=== PATIENT | female | born 1970 | race African-American/Black ===

== ENCOUNTER 2017-05-26 21:04 | Emergency (ER) | payer BC, OTHER ==
[~2017-05-26] VITALS: Ht 167.6 cm; Wt 88.0 kg
[~2017-05-26 21:04] MED LIST: CYCL-36 PO; IBUP-238 PO
[2017-05-26 21:13] VITALS: BP 183/111; PULSE 93; RESP 16; TEMP 98.3; O2SAT 100
[2017-05-26 22:11] VITALS: BP 183/97; PULSE 83; RESP 16; O2SAT 100
[2017-05-26] MEDS ORDERED: SODIUM CHLOR 0.9% 1000 ML INJ 1,000 ML IV ONE (22:31)
--- NOTE | 2017-05-26 22:42 | PD ---
HPI Chief Complaint: Headache Time Seen by Provider: 22:25 Travel History International Travel<30 days: No Contact w/Intl Traveler<30days: No Traveled to known affect area: No History of Present Illness HPI 47-year-old female presents to the emergency department for evaluation of 2 separate issues. First, the patient has a headache that started yesterday. She states she took Tylenol neck she has decreased to approximately a 6/10. States it is behind her bilateral eyes. She denies any photophobia or phonophobia. No nausea, vomiting, diarrhea. No chest pain or shortness of breath. She also reports bilateral leg pain, the entire legs. She denies any history of DVT. No erythema or swelling. Patient denies any injury or trauma. She reports no chronic medical problems and takes no prescribed. She denies a chance of . [facility] Past Medical History Medical History: Denies Significant Hx Tetanus Vaccination: Unknown ?: Not LMP: 05/11/2017 Past Surgical History Surgical History: No Previous Surgery Social History Alcohol Use: No Tobacco Use: No Substance Use: No Allergies-Medications (Allergen,Severity, Reaction): Coded Allergies: No Known Allergies (Unverified , 05/26/17) Reported Meds & Prescriptions Reported Meds & Active Scripts Active Review of Systems Except as stated in HPI: all other systems reviewed are Neg Physical Exam Narrative GENERAL: Well-nourished, well-developed female patient, afebrile. SKIN: Focused skin assessment warm/dry. HEAD: Normocephalic. Atraumatic. ENT: Mucosa pink and moist. No erythema or exudates. No uvular edema. No uvular , palatal, or tonsillar deviation. Airway patent. Nasal turbinates appear normal without nasal blood, purulent drainage or septal hematoma. Bilateral tympanic membranes are clear without erythema or perforation. EYES: No scleral icterus. No injection or drainage. PERRLA. EOM intact. NECK: Supple, trachea midline. No JVD or lymphadenopathy. CARDIOVASCULAR: Regular rate and rhythm without murmurs, gallops, or rubs. Bilateral radial and pedal pulses are 2+. RESPIRATORY: Breath sounds equal bilaterally. No accessory muscle use. Lungs sounds are clear to auscultation. GASTROINTESTINAL: Abdomen soft, non-tender, nondistended. MUSCULOSKELETAL: No cyanosis, or edema. Bilateral upper and lower extremity strength 5/5. All extremities are neurovascularly intact. No erythema or swelling. Negative Homans sign bilaterally. BACK: Nontender without obvious deformity. No CVA tenderness. NEUROLOGICAL: Awake and alert. Cranial nerves II through XII intact. Motor and sensory grossly within normal limits. Five out of 5 muscle strength in all muscle groups. Normal speech. Finger to nose is normal bilaterally. Heel-to- membreno is normal bilaterally. Data Data Last Documented VS Vital Signs Date Time Temp Pulse Resp B/P (MAP) Pulse Ox O2 Delivery O2 Flow Rate FiO2 05/26/17 22:11 83 16 183/97 (125) 100 Room Air 05/26/17 21:13 98.3 Orders Orders Complete Blood Count With Diff (05/26/17 22:31) Comprehensive Metabolic Panel (05/26/17 22:31) Ct Brain W/O Iv Contrast(Rout) (05/26/17 22:31) Ecg Monitoring (05/26/17 22:31) Iv Access Insert/Monitor (05/26/17 22:31) Oximetry (05/26/17 22:31) Sodium Chloride 0.9% Flush (Ns Flush) (05/26/17 22:45) Prochlorperazine Inj (Compazine Inj) (05/26/17 22:45) Diphenhydramine Inj (Benadryl Inj) (05/26/17 22:45) Sodium Chlor 0.9% 1000 Ml Inj (Ns 1000 M (05/26/17 22:31) Creatine Kinase (Cpk) (05/26/17 22:31) Us Leg Venous Doppler Bilat (05/26/17 ) MDM Medical Decision Making Medical Screen Exam Complete: Yes Emergency Medical Condition: Yes Medical Record Reviewed: Yes Differential Diagnosis Tension headache versus migraine headache versus intracranial abnormality versus muscle spasm versus strain versus hypokalemia Narrative Course 47-year-old female presents to the emergency department for evaluation of headache as well as bilateral lower leg pain. IV access is ordered and pending. CBC, CMP, CK are ordered and pending. CT of the brain is ordered and pending. Venous Doppler ultrasound bilateral lower extremities is ordered and pending. Patient is given normal saline 1 L IV bolus, Compazine 10 mg IV, Benadryl 25 mg IV. My attending physician, Dr. Mulligan, resumed care and disposition of patient. Audra Jin May 26, 2017 22:42
[2017-05-26] MEDS ORDERED: diphenhydrAMINE HCL 50 MG/ML VIAL IVP ONE (22:45)
[2017-05-26] MEDS ORDERED: PROCHLORPERAZINE INJ 10 MG/2 ML VIAL IVP ONE (22:45)
[2017-05-26] MEDS ORDERED: SODIUM CHLORIDE 0.9% FLUSH 10 ML FLUSH IVF PRN (22:45)
[2017-05-26 23:17] LABS: AUTOMATED NEUTROPHIL # 3.8 TH/MM3 (1.8-7.7); BASOPHIL # 0.1 TH/MM3 (0-0.2); BASOPHIL % 0.9 % (0.0-2.0); EOSINOPHIL # 0.1 TH/MM3 (0-0.4); EOSINOPHIL % 0.9 % (0.0-4.0); HEMATOCRIT 39.4 % (35.0-46.0); HEMO FLAGS DIFF FINAL; LYMPH % 49.1 % (9.0-44.0); LYMPHOCYTE # 4.8 TH/MM3 (1.0-4.8); MEAN CELL VOLUME 89.2 FL (80.0-100.0); MEAN CORPUSCULAR HEMOGLOBIN 29.5 PG (27.0-34.0); MONO % 10.4 % (0.0-8.0); NEUT % 38.7 % (16.0-70.0); PLATELET COUNT 408 TH/MM3 (150-450); RED BLOOD COUNT 4.42 MIL/MM3 (4.00-5.30); RED CELL DISTRIBUTION WIDTH 13.9 % (11.6-17.2); WHITE BLOOD COUNT 9.8 TH/MM3 (4.0-11.0)
--- NOTE | 2017-05-26 23:21 | RADRPT ---
EXAM DATE/TIME: 05/26/2017 22:50 [facility] COMPARISON: No previous studies available for comparison. INDICATIONS : Bilateral leg pain. MEDICAL HISTORY : None. SURGICAL HISTORY : None. ENCOUNTER: Initial ACUITY: 1 day PAIN SCORE: 2/10 LOCATION: Bilateral legs. TECHNIQUE: Venous ultrasound of the left and right leg was performed from the inguinal ligament to the proximal calf. Real-time, color Doppler and spectral tracing, compression and augmentation techniques were us ed. FINDINGS: RIGHT LEG: There is normal compressibility of the deep venous system from the inguinal region to the proximal ca lf. No echogenic clot is seen in the lumen of the common femoral, femoral, popliteal, and posterior tibial veins. There is a normal response of the venous system to proximal and distal augmentation an d respiration. LEFT LEG: There is normal compressibility of the deep venous system from the inguinal region to the proximal ca lf. No echogenic clot is seen in the lumen of the common femoral, femoral, popliteal, and posterior tibial veins. There is a normal response of the venous system to proximal and distal augmentation an d respiration. CONCLUSION: No DVT. Alexander Kraft MD on May 26, 2017 at 23:19 Board Certified Radiologist. This report was verified electronically.
[2017-05-26 23:32] LABS: ALT (GPT) 15 U/L (10-53)
[2017-05-26 23:35] LABS: ALKALINE PHOSPHATASE 74 U/L (45-117); CREATINE KINASE 150 U/L (26-192); TOTAL BILIRUBIN ADULT 0.2 MG/DL (0.2-1.0)
[2017-05-26 23:51] LABS: ANION GAP 8 MEQ/L (5-15); AST (GOT) 13 U/L (15-37); BICARBONATE 25.3 MEQ/L (21.0-32.0); BLOOD UREA NITROGEN 14 MG/DL (7-18); CHLORIDE 104 MEQ/L (98-107); GLOMERULAR FILTRATION RATE 59 ML/MIN (>89); POTASSIUM 3.5 MEQ/L (3.5-5.1); SODIUM (NA) 137 MEQ/L (136-145)
--- NOTE | 2017-05-27 00:03 | RADRPT ---
EXAM DATE/TIME: 05/26/2017 23:21 [facility] COMPARISON: No previous studies available for comparison. INDICATIONS : Cephalgia. RADIATION DOSE: 56.35 CTDIvol (mGy) MEDICAL HISTORY : None SURGICAL HISTORY : None. ENCOUNTER: Initial ACUITY: 1 day PAIN SCALE: 7/10 LOCATION: cranial TECHNIQUE: Multiple contiguous axial images were obtained of the head. Using automated exposure control and adj ustment of the mA and/or kV according to patient size, radiation dose was kept as low as reasonably a chievable to obtain optimal diagnostic quality images. DICOM format image data is available electro nically for review and comparison. FINDINGS: CEREBRUM: The ventricles are normal for age. There is a focal 1.7 x 0.9 cm area of hypodensity seen in the med ial left temporal region. No evidence of midline shift, hemorrhage or acute infarction. No extra-ax ial fluid collections are seen. POSTERIOR FOSSA: The cerebellum and brainstem are intact. The 4th ventricle is midline. The cerebellopontine angle i s unremarkable. EXTRACRANIAL: The visualized portion of the orbits is intact. SKULL: The calvaria is intact. No evidence of skull fracture. CONCLUSION: Focal 1.7 cm hypodensity seen in the medial left temporal lobe. This may represent a low density mass versus a area of encephalomalacia. Significant mass effect is not seen. No acute hemorrhage is seen. Alexander Kraft MD on May 26, 2017 at 23:59 Board Certified Radiologist. This report was verified electronically.
[2017-05-27 00:09] VITALS: BP 160/84
[2017-05-27] MEDS ORDERED: MOBI15TA PO (01:18)
[2017-05-27] MEDS ORDERED: BUTA1CAP PO (01:18)
--- NOTE | 2017-05-27 01:18 | PD ---
Physical Exam Narrative Patient was seen by my food and beverage assistant manager and signed out to me. Data Data Last Documented VS Vital Signs Date Time Temp Pulse Resp B/P (MAP) Pulse Ox O2 Delivery O2 Flow Rate FiO2 05/27/17 00:09 160/84 (109) 05/26/17 22:11 83 16 100 Room Air 05/26/17 21:13 98.3 Orders Orders Complete Blood Count With Diff (05/26/17 22:31) Comprehensive Metabolic Panel (05/26/17 22:31) Ct Brain W/O Iv Contrast(Rout) (05/26/17 22:31) Ecg Monitoring (05/26/17 22:31) Iv Access Insert/Monitor (05/26/17 22:31) Oximetry (05/26/17 22:31) Sodium Chloride 0.9% Flush (Ns Flush) (05/26/17 22:45) Prochlorperazine Inj (Compazine Inj) (05/26/17 22:45) Diphenhydramine Inj (Benadryl Inj) (05/26/17 22:45) Sodium Chlor 0.9% 1000 Ml Inj (Ns 1000 M (05/26/17 22:31) Creatine Kinase (Cpk) (05/26/17 22:31) Us Leg Venous Doppler Bilat (05/26/17 ) Labs Laboratory Tests Test 05/26/17 22:40 White Blood Count 9.8 TH/MM3 Red Blood Count 4.42 MIL/MM3 Hemoglobin 13.0 GM/DL Hematocrit 39.4 % Mean Corpuscular Volume 89.2 FL Mean Corpuscular Hemoglobin 29.5 PG Mean Corpuscular Hemoglobin Concent 33.0 % Red Cell Distribution Width 13.9 % Platelet Count 408 TH/MM3 Mean Platelet Volume 8.0 FL Neutrophils (%) (Auto) 38.7 % Lymphocytes (%) (Auto) 49.1 % Monocytes (%) (Auto) 10.4 % Eosinophils (%) (Auto) 0.9 % Basophils (%) (Auto) 0.9 % Neutrophils # (Auto) 3.8 TH/MM3 Lymphocytes # (Auto) 4.8 TH/MM3 Monocytes # (Auto) 1.0 TH/MM3 Eosinophils # (Auto) 0.1 TH/MM3 Basophils # (Auto) 0.1 TH/MM3 CBC Comment DIFF FINAL Differential Comment Blood Urea Nitrogen 14 MG/DL Creatinine 1.17 MG/DL Random Glucose 75 MG/DL Total Protein 8.5 GM/DL Albumin 3.7 GM/DL Calcium Level 9.4 MG/DL Alkaline Phosphatase 74 U/L Aspartate Amino Transf (AST/SGOT) 13 U/L Alanine Aminotransferase (ALT/SGPT) 15 U/L Total Bilirubin 0.2 MG/DL Sodium Level 137 MEQ/L Potassium Level 3.5 MEQ/L Chloride Level 104 MEQ/L Carbon Dioxide Level 25.3 MEQ/L Anion Gap 8 MEQ/L Estimat Glomerular Filtration Rate 59 ML/MIN Total Creatine Kinase 150 U/L [facility] Supervised Visit with BETO: Yes Interpretation(s) Last Impressions Head CT 05/26/17 2231 Signed Impressions: Service Date/Time: Friday, May 26, 2017 23:21 - CONCLUSION: Focal 1.7 cm hypodensity seen in the medial left temporal lobe. This may represent a low density mass versus a area of encephalomalacia. Significant mass effect is not seen. No acute hemorrhage is seen. Alexander Kraft MD Lower Extremity Ultrasound 05/26/17 0000 Signed Impressions: Service Date/Time: Friday, May 26, 2017 22:50 - CONCLUSION: No DVT. Alexander Kraft MD 1:13 AM. CBC within normal limit. CMP within normal limit. Diagnosis Primary Impression: Cephalgia Qualified Codes: R51 - Headache Additional Impression: Arthralgia Qualified Codes: M25.50 - Pain in unspecified joint Patient Instructions: General Instructions Additional Instruction: Take medications as needed for headache and leg pain. Follow-up with personal physician and neurosurgeon. Return if worse. Med/Other Pt SpecificInfo: Prescription(s) given Scripts Meloxicam (Mobic) 15 Mg Tab 15 MG PO DAILY for Pain, #20 TAB 0 Refills Prov: Ministerio Mulligan MD 05/27/17 Luyisiszkh-Hocfdqdnumrmv-Yxpxsjvh (Fioricet) 50-300-40 Mg Cap 1-2 CAP PO Q6H Y for HEADACHE, #20 CAP 0 Refills Prov: Ministerio Mulligan MD 05/27/17 Disposition: DISCHARGE HOME Condition: Stable Ministerio Mulligan MD May 27, 2017 01:18
== END 2017-05-27 01:42 | disposition home or self-care (01) ==
LOC: NEPE 21:04
DX: R51 Headache (principal); M25.50 Pain in unspecified joint
CPT/HCPCS: 70450; 80053; 82550; 85025; 93970; 96374; 96375; 99285; J0780; J1200; J7030